=== PATIENT | female | born 1995 | race American Indian/Alaskan Native ===

== ENCOUNTER 2020-07-08 22:28 | Emergency (ER) | payer OTHER ==
[2020-07-08 22:59] VITALS: BP 136/83
== END 2020-07-09 01:29 ==
LOC: ED 22:28
DX: R51.9 Headache, unspecified (principal); Z53.21 Procedure and treatment not carried out due to patient leaving prior to being seen by health care provider

== ENCOUNTER 2020-11-07 15:28 | Emergency (ER) | payer OTHER ==
[2020-11-07 16:22] VITALS: BP 119/84
--- NOTE | 2020-11-07 18:04 | XRay Report ---
XR toe(s) 2+V RT, XR ankle 3+V LT INDICATION / CLINICAL INFORMATION: 2nd toe pain post fall. COMPARISON: None available. FINDINGS: No acute fracture. Normal alignment. Joint spaces are preserved. No destructive osseous lesion or s uspicious periosteal reaction. Impression: 1.No acute fracture. Signer Name: Arsenio Jasso MD Signed: 11/07/2020 6:00 PM Workstation Name: [id number]
--- NOTE | 2020-11-07 19:16 | Emergency Department Report ---
ED Lower Extremity HPI - General Chief Complaint: Extremity Injury, Lower Stated Complaint: L ANKLE INJURY Time Seen by Provider: 11/07/20 16:28 Source: patient Mode of arrival: Ambulatory Limitations: No Limitations - History of Present Illness MD Complaint: ankle injury, foot injury -: days(s) (2) Injury: Ankle: Left, Toes: Right Type of Injury: inversion Place: street/outdoors Worsens With: weight bearing, movement, palpation Context: fall Associated Symptoms: able to partially bear weight - Related Data Previous Rx's Medication Instructions Recorded Last Taken Type Ibuprofen [Motrin 800 MG tab] 800 mg PO Q8H PRN #30 tablet 02/19/14 Unknown Rx Promethazine /Codeine 5 ml PO Q6H PRN #120 ml 02/19/14 Unknown Rx [Phenergan/Codeine 6.25-10 mg/5 ml] predniSONE [Deltasone] 50 mg PO QDAY #5 tab 02/19/14 Unknown Rx Magnesium Hydroxide [Milk of 30 ml PO QHS #1 bottle 12/11/14 Unknown Rx Magnesia] Allergies Allergy/AdvReac Type Severity Reaction Status Date / Time No Known Allergies Allergy Verified 02/19/14 13:20 ED Review of Systems ROS: Stated complaint: L ANKLE INJURY Other details as noted in HPI Comment: All other systems reviewed and negative ED Past Medical Hx - Past Medical History Previous Medical History?: No Hx Sickle Cell Disease: Yes (TRAIT) Additional medical history: A0. SICKLE CELL TRAIT - Surgical History Past Surgical History?: Yes Additional Surgical History: C-sec X 1 - Social History Smoking Status: Never Smoker Substance Use Type: None - Medications Home Medications: Home Medications Medication Instructions Recorded Confirmed Last Taken Type Ibuprofen [Motrin 800 MG tab] 800 mg PO Q8H PRN #30 tablet 02/19/14 Unknown Rx Promethazine /Codeine 5 ml PO Q6H PRN #120 ml 02/19/14 Unknown Rx [Phenergan/Codeine 6.25-10 mg/5 ml] predniSONE [Deltasone] 50 mg PO QDAY #5 tab 02/19/14 Unknown Rx Magnesium Hydroxide [Milk of 30 ml PO QHS #1 bottle 12/11/14 Unknown Rx Magnesia] ED Physical Exam - General Limitations: No Limitations General appearance: alert, in no apparent distress - Head Head exam: Present: atraumatic, normocephalic - Eye Eye exam: Present: normal appearance - ENT ENT exam: Present: mucous membranes moist - Neck Neck exam: Present: normal inspection - Respiratory Respiratory exam: Present: normal lung sounds bilaterally. Absent: respiratory distress - Cardiovascular Cardiovascular Exam: Present: regular rate, normal rhythm. Absent: systolic murmur, diastolic murmur, rubs, gallop - GI/Abdominal GI/Abdominal exam: Present: soft, normal bowel sounds - Extremities Exam Extremities exam: Present: normal inspection, tenderness (To the lateral malleolus of the left ankle. Tenderness to the anterior talofibular ligament. Drawer test is negative. Pulses 2+ B. Brisk), joint swelling - Back Exam Back exam: Present: normal inspection. Absent: CVA tenderness (R), CVA tenderness (L) - Neurological Exam Neurological exam: Present: alert, oriented X3, CN II-XII intact, normal gait - Psychiatric Psychiatric exam: Present: normal affect, normal mood - Skin Skin exam: Present: warm, dry, intact, normal color. Absent: rash, cyanosis, diaphoretic ED Course Vital Signs 11/07/20 16:20 Temperature 99.0 F Pulse Rate 73 Respiratory 16 Rate Blood Pressure 119/84 O2 Sat by Pulse 99 Oximetry ED Lower Extremity MDM - Radiology Data Radiology results: report reviewed No acute fracture of the ankle - Medical Decision Making Strengthening female seen by department for pain to the ankle and toe found to have a sprained ankle and sprained toe she was treated accordingly with a Velcro stirrup brace and offered crutches. Anatole was splinted. Advised on ice therapy as well as anti-inflammatories analgesic control. Critical care attestation.: If time is entered above; I have spent that time in minutes in the direct care of this critically ill patient, excluding procedure time. ED Disposition Clinical Impression: Ankle sprain, Toe sprain Disposition: HOME / SELF CARE / HOMELESS Is pt being admited?: No Does the pt Need Aspirin: No Condition: Stable Instructions: How to Use a Stirrup Ankle Brace, [id number], How to Use Cold Therapy, [id number], Ankle Sprain, [id number], Ankle Sprain, Phase I Rehab- Sports[facility], How to Use Cold Therapy, How to Use a Stirrup Ankle Brace Referrals: KADIE BRAR MD [Staff Physician] - 3-5 Days
== END 2020-11-07 20:00 | disposition home or self-care (01) ==
LOC: ED 15:28
DX: S93.402A Sprain of unspecified ligament of left ankle, initial encounter (principal); S93.509A Unspecified sprain of unspecified toe(s), initial encounter; D57.3 Sickle-cell trait; Z98.890 Other specified postprocedural states; W19.XXXA Unspecified fall, initial encounter; Y93.89 Activity, other specified; Y92.89 Other specified places as the place of occurrence of the external cause; Y99.8 Other external cause status
CPT/HCPCS: 29540; 99283